=== PATIENT | female | born 1985 | race Caucasian/White ===

== ENCOUNTER → 2017-04-07 | Outpatient (CLI) | payer OTHER ==
[2017-04-07 18:18] LABS: BASO % 0.2 % (0.0-1.0); EOS # 0.1 K/mm3 (0.0-0.50); EOS % 1.2 % (0.0-3.0); LARGE UNSTAINED CELL # 0.1 K/mm3 (0.0-0.4); LARGE UNSTAINED CELL % 1.3 % (0.0-4.0); LYMPH # 2.5 K/mm3 (1.5-4.5); LYMPH % 31.1 % (24.0-44.0); MEAN CORPUSCULAR HEMOGLOBIN 31.2 pg (27.0-33.0); MEAN CORPUSCULAR HGB CONC 32.8 g/dl (32.0-36.5); MEAN CORPUSCULAR VOLUME 95.2 fl (80.0-96.0); MONO # 0.4 K/mm3 (0.0-0.8); MONO % 5.2 % (0.0-5.0); NEUTROPHILS # 4.9 K/mm3 (1.8-7.7); PLATELET COUNT, AUTOMATED 255 k/mm3 (150-450); RED CELL DISTRIBUTION WIDTH 12.1 % (11.5-14.5)
[2017-04-08 10:40] LABS: HBsAg Prenatal NEGATIVE (NEGATIVE)
== END ==
LOC: M SMT 13:20
PROVIDERS: ATTEND Advanced Practice Midwife
DX: Z34.81 Encounter for supervision of other normal pregnancy, first trimester (principal)

== ENCOUNTER → 2017-07-03 | Outpatient (CLI) | payer OTHER ==
--- NOTE | 2017-07-03 09:31 | REP ---
Obstetric ultrasound for anatomy: There is a single intrauterine gestation. position is variable. heart rate is 136 beats per minute. The placenta is anterior. There is no placenta previa or abruptio. Placenta demonstrates grade zero maturity. The amniotic fluid volume subjectively is normal. The cervix is 5.2 cm in length. The maternal adnexa and cul-de-sac are unremarkable. By the ultrasound today gestational age is 20 weeks 3 days with an AZUL of 11/17/2017. The LMP is unknown. weight is 392 grams (0 pounds, 13 ounces). This is the 64th percentile for 20 weeks 3 days. The following anatomic structures are identified and are unremarkable: Cerebellum, cisterna magna, cavum septum pellucidum, cranium, facial profile, lungs, four-chamber heart, diaphragm, stomach, cord insertion, three-vessel cord, kidneys, bladder, spine, and upper lower extremities. Suboptimally demonstrated because of lie and maternal body habitus are the intracranial lateral ventricles, choroid plexus and right and left cardiac ventricular outflow tracts. A followup study dedicated to these structures might be considered. Otherwise, there are no anomalies. Signed by Sandro Ramirez MD 07/03/2017 09:22 A
== END ==
LOC: M SMT 07:54
PROVIDERS: ATTEND Advanced Practice Midwife
DX: Z34.82 Encounter for supervision of other normal pregnancy, second trimester (principal); Z3A.20 20 weeks gestation of pregnancy

== ENCOUNTER 2017-07-07 17:16 | Emergency (ER) | payer OTHER ==
[~2017-07-07] VITALS: Ht 157.5 cm; Wt 97.5 kg
[2017-07-07 18:31] VITALS: BP 121/74
== END 2017-07-07 18:41 | disposition home or self-care (01) ==
LOC: M ED 17:16
DX: Z04.1 Encounter for examination and observation following transport accident (principal); V43.52XA Car driver injured in collision with other type car in traffic accident, initial encounter; Y92.410 Unspecified street and highway as the place of occurrence of the external cause; Z3A.21 21 weeks gestation of pregnancy

== ENCOUNTER → 2017-07-22 | Outpatient (CLI) | payer OTHER ==
[~2017-07-22] MED LIST: PRENTAB9 PO
--- NOTE | 2017-07-22 23:39 | REP ---
Clinical: Anatomical re-evaluation. Comparison: 10/09 . Findings: Examination demonstrates a single live intrauterine in variable presentation. motion is identified by technologist. Placenta is noted anteriorly and grade zero without evidence for placenta previa or abruption. Amniotic fluid volume is normal. Cervix measures 5.3 cm in length and appears closed. Nuchal cord cannot be excluded. Gestational age by first US 23 weeks 1 day with AZUL 11/17/2017 . Gestational age by current measurements 22 weeks 6 days with AZUL 11/19/2017. FHR equals 133 beats per minute. Estimated weight 607 grams ( 56th percentile). Anatomical assessment demonstrates normal structures including cranium, choroid plexus, cavum, cerebellum/posterior fossa, facial features, lungs, four-chamber heart/ left ventricular outflow tracts, diaphragm, stomach, cord insertion/three-vessel cord, kidneys/bladder, spine, and extremities. Impression: 1. Single live intrauterine in variable presentation demonstrating appropriate interval growth compared to first ultrasound. 2. Incomplete evaluation of the right cardiac ventricular outflow tract noted. Remainder of the anatomical assessment is complete and normal. 3. Nuchal cord cannot be excluded. Signed by Frederick Schulz MD 07/22/2017 11:30 P
== END ==
LOC: M SMT 11:24
PROVIDERS: ATTEND Obstetrics & Gynecology
DX: Z34.82 Encounter for supervision of other normal pregnancy, second trimester (principal); Z3A.23 23 weeks gestation of pregnancy

== ENCOUNTER → 2017-08-28 | Outpatient (CLI) | payer BC ==
--- NOTE | 2017-08-28 18:32 | REP ---
REASON: Followup anatomy. Multiple ultrasonographic images of the gravid uterus show a single living intrauterine gestation in the cephalic presentation. Doppler interrogation of the heart shows a heart rate of 141 beats per minute. The placenta is anterior and not low lying. The subjective aminotic fluid volume is within normal limits. The cervix measures 7 cm in length and it is closed. Evaluation of the maternal adnexal spaces showed no abnormalities. BPD 7.2 cm = 29 weeks 0 days HC 26.8 cm = 29 weeks 2 days AC 25.5 cm = 29 weeks 5 days FL 5.9 cm = 30 weeks 4 days Estimated weight is 1471 grams which is at the 76th percentile for a 28 week 3 day gestational age. The calculated amniotic fluid index is 13.5 with an expected range of 9.3 -22.2. The right ventricular outflow tract was well seen today and has a normal appearance. The remainder of the anatomical screen was seen on previous exams. Doppler interrogation of the umbilical artery shows an AB ratio of 2.47. This is slightly outside the lower limit of normal which is 2.55 for this age. IMPRESSION: Single living intrauterine gestation as described above with an estimated gestational age of 29 weeks 5 days via composite criteria with an estimated date of delivery of 11/08/2017 by today's exam. No anomalies were detected as described above. Signed by Arnaldo Moreno DO 08/28/2017 07:18 P
== END ==
LOC: M RAD 16:49
PROVIDERS: ATTEND Specialist
DX: Z34.82 Encounter for supervision of other normal pregnancy, second trimester (principal); Z3A.26 26 weeks gestation of pregnancy

== ENCOUNTER → 2017-08-30 | Outpatient (REF) | payer BC ==
[2017-08-30 19:54] LABS: MEAN CORPUSCULAR HEMOGLOBIN 31.5 pg (27.0-33.0); MEAN CORPUSCULAR VOLUME 98.2 fl (80.0-96.0); WHITE BLOOD COUNT 10.5 10^3/uL (4.0-10.0)
== END ==
LOC: M LABWUC 19:20
PROVIDERS: ATTEND Obstetrics & Gynecology
DX: Z34.82 Encounter for supervision of other normal pregnancy, second trimester (principal)

== ENCOUNTER 2017-10-01 15:00 | Outpatient (CLI) | payer BC ==
[~2017-10-01] VITALS: Ht 160 cm; Wt 107.9 kg
[2017-10-01 15:30] VITALS: BP 100/51
[2017-10-01] MEDS ORDERED: PRENTAB9 PO (15:32)
--- NOTE | 2017-10-01 17:11 | IPNPDOC ---
Text Note Date of Service The patient was seen on 10/01/17. NOTE Outpatient 31yo AZUL 11/19/17. Presents @ 33+ wks gestation reportedly falling this am onto knee and hip. Denies UC or bleeding. Fetus active NAD, VSS HRR, respirations easy Abdomen soft, gravid No UC on monitor FH 135, moderate variability and accels. However, strip is broken due to activity and maternal habitus Will observe, check labs and BPP. Dianne Weston CNM Oct 01, 2017 17:11
[2017-10-01 17:50] VITALS: BP 86/51
[2017-10-01 17:52] LABS: MEAN CORPUSCULAR HEMOGLOBIN 31.5 pg (27.0-33.0); MEAN CORPUSCULAR HGB CONC 33.8 g/dl (32.0-36.5); MEAN CORPUSCULAR VOLUME 93.1 fl (80.0-96.0); PLATELET COUNT, AUTOMATED 173 10^3/uL (150-450); RED CELL DISTRIBUTION WIDTH 12.2 % (11.5-14.5); WHITE BLOOD COUNT 10.1 10^3/uL (4.0-10.0)
--- NOTE | 2017-10-01 18:16 | REP ---
BIOPHYSICAL PROFILE OB ULTRASOUND: 10/01/2017. Clinical history: Trauma, patient fell. Comparison: 08/28/2017. Findings: Based on her initial ultrasound she is 33 weeks 2 days. There is a single intrauterine gestation in vertex position. Cervix is 4.9 cm long and closed. There is an anterior grade 2 placenta without previa or abruption. Visually the amniotic fluid volume is normal with an index of 15.2 and the normal range 8.2 - 24.6. Largest fluid pocket is 5.1 cm. Mid cord umbilical artery Doppler shows S/D ratio 2.71 with normal forward diastolic flow. heart rate 131 and regular. No evidence of a nuchal cord. Biophysical profile: Breathing 2 Tone 2 Movement 2 AFV 2. Impression: 1. Single intrauterine gestation in vertex presentation with closed 4.9 cm long cervix. Anterior grade 2 placenta without previa or abruption. No evidence of a nuchal cord. 2. Normal ELLEN 15.2 with normal cord Doppler SD ratio and biophysical profile score 8/8. 3 . heart rate 131 and regular. Signed by Sumeet Baker MD 10/01/2017 07:46 P
[2017-10-01 19:26] VITALS: BP 97/52
--- NOTE | 2017-10-01 19:27 | IPNPDOC ---
Text Note Date of Service The patient was seen on 10/01/17. NOTE heart tracing has remained Cat I over 4 hours No UC BPP 8/8 KB 0.00 No bleeding or cramping Discharge home. Routine precautions. Keep next appt VS,Johnson, I+O VS, Johnson, I+O Laboratory Tests 10/01/17 17:19 Red Blood Count 3.94 L, Mean Corpuscular Volume 93.1, Mean Corpuscular Hemoglobin 31.5, Mean Corpuscular Hemoglobin Concent 33.8, Red Cell Distribution Width 12.2 Vital Signs Date Time Temp Pulse Resp B/P (MAP) Pulse Ox O2 Delivery O2 Flow Rate FiO2 10/01/17 17:50 62 86/51 (63) 10/01/17 15:30 98.7 18 Dianne Weston CNM Oct 01, 2017 19:27
== END 2017-10-01 19:30 | disposition home or self-care (01) ==
LOC: M LDO 15:00
PROVIDERS: ATTEND Advanced Practice Midwife
DX: O99.89 Other specified diseases and conditions complicating pregnancy, childbirth and the puerperium (principal); Z3A.33 33 weeks gestation of pregnancy; W19.XXXA Unspecified fall, initial encounter; X58.XXXA Exposure to other specified factors, initial encounter; Y93.9 Activity, unspecified; Y92.9 Unspecified place or not applicable; Y99.8 Other external cause status; Z88.5 Allergy status to narcotic agent

== ENCOUNTER → 2017-10-12 | Outpatient (CLI) | payer BC ==
[2017-10-12 17:50] LABS: ALT/SGPT 41 U/L (12-78); AST/SGOT 29 U/L (7-37); BILIRUBIN,TOTAL 0.3 MG/DL (0.2-1.0); CREATININE FOR GFR 0.51 MG/DL (0.55-1.02); GLOMERULAR FILTRATION RATE > 60.0 (>60); URIC ACID 3.8 MG/DL (2.6-6.0)
== END ==
LOC: M LAB 16:34
PROVIDERS: ATTEND Advanced Practice Midwife
DX: O13.3 Gestational [pregnancy-induced] hypertension without significant proteinuria, third trimester (principal); Z3A.00 Weeks of gestation of pregnancy not specified

== ENCOUNTER → 2017-10-20 | Outpatient (REF) | payer BC | LOC: M LAB REF 17:26 | PROVIDERS: ATTEND Specialist | DX: Z34.83 Encounter for supervision of other normal pregnancy, third trimester (principal) ==

== ENCOUNTER 2017-11-10 12:35 | Inpatient (IN) | payer BC ==
[2017-11-10] VITALS (12 sets, daily range): BP systolic 111–134; BP diastolic 62–91
[~2017-11-10] VITALS: Ht 157.5 cm; Wt 114.3 kg
[2017-11-10] MEDS ORDERED: TUMS500C PO (12:57)
[2017-11-10 13:40] LABS: BASO % 0.3 % (0.0-1.0); EOS # 0.1 10^3/uL (0.0-0.50); EOS % 1.3 % (0.0-3.0); IMMATURE GRANULOCYTE % 0.4 % (0-0); LYMPH # 1.7 10^3/uL (1.5-4.5); LYMPH % 16.4 % (24.0-44.0); MEAN CORPUSCULAR HEMOGLOBIN 31.2 pg (27.0-33.0); MEAN CORPUSCULAR HGB CONC 34.5 g/dl (32.0-36.5); MEAN CORPUSCULAR VOLUME 90.4 fl (80.0-96.0); MONO # 0.7 10^3/uL (0.0-0.8); MONO % 7.1 % (0.0-5.0); NEUTROPHILS # 7.8 10^3/uL (1.8-7.7); NEUTROPHILS % 74.5 % (36.0-66.0); PLATELET COUNT, AUTOMATED 175 10^3/uL (150-450); RED CELL DISTRIBUTION WIDTH 12.5 % (11.5-14.5); WHITE BLOOD COUNT 10.5 10^3/uL (4.0-10.0)
[2017-11-10] MEDS ORDERED: miSOPROStol 50 MCG 1/2 TAB (S0191) PO SCH (14:15)
[2017-11-10 14:16] LABS: ALT/SGPT 19 U/L (12-78); AST/SGOT 20 U/L (7-37); BILIRUBIN,TOTAL 0.2 MG/DL (0.2-1.0); GLOMERULAR FILTRATION RATE > 60.0 (>60); URIC ACID 4.3 MG/DL (2.6-6.0)
--- NOTE | 2017-11-10 14:42 | HPEPDOC ---
Obstetrical History & Physical General Date of Admission Nov 10, 2017 at 12:35 History of Present Illness CC: Gestational Hypertension HPI: Patient is a 31 y.o. G 1 P0 0 0 0 @ 38 and 5/7 weeks gestation by US of 8 and 5/ 7 weeks. AZUL 11/19/17. 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 Blood pressure was found to be 144/78. Has +1 edema of feet bilaterally. Has been having Carbon Carter contractions. Repeat blood pressure is 138/82. Has been complaining of a frontal headache for one week. Denied blurred vision, abdominal pain. Meeting criteria for gestational hypertension and agreed to send to L&D. No bloody show. Care/Lab: Blood type: O+ Total weight gained: 75 BPs: 144/78 11/10/17 GBS: negative HIV: negative Rubella: Immune GC/CT: Negative /negative Hep BsAg: negative VDRL/RPR: Nonreactive Diabetes Screen: negative, 115 OB U/S: Anatomy ultrasound 07/03/17, SIUP, 20 w, 3d. Placenta is anterior with no previa or abruption. AFV is wnl. Cervix is 5.2 cm and closed. FHR is 146 bpm. EFQ is 392 g. No gross abnormalities. Suboptimally seen intracranial lateral ventricles, choroid plexus and LVOT. POB Hx: No past obstetrical history PMHx: Extrinsic asthma without status asthmaticus Meds: Prenatals vitamins PSHx: Dental Allergies: Codeine Social Hx: Has been with current partner for 8 years, nonsmoker, denies alcohol use, denies drug use. Past Medical History Allergies Coded Allergies: Codeine (Verified Allergy, Unknown, 11/10/17) pt reports swelling Medications Scheduled Multivitamins/ ( 27-0.8 mg) 1 Tab Tab, 1 TAB PO DAILY Scheduled PRN Calcium Carbonate (Tums) 500 Mg Chw, 500 MG PO DAILYPRN PRN for INDIGESTION Physical Examination Physical Examination Exam: General: Alert, cooperative. Comfortable. No active contractions. Cardiac: RRR, no murmurs or gallops. Respiratory: Clear to auscultation. Abdomen: Gravid, nontender. SVE: fingertip/ 50 %/ -3 station from office note 11/10/17. Monitor: moderate variability noted. Laboratory Data 24H LABS Laboratory Tests 2 11/10/17 12:53: Serology Scanned Report Hepatitis B Testing 11/10/17 13:25: Immature Granulocyte % (Auto) 0.4H, White Blood Count 10.5H, Red Blood Count 4.07, Hemoglobin 12.7, Hematocrit 36.8, Mean Corpuscular Volume 90.4, Mean Corpuscular Hemoglobin 31.2, Mean Corpuscular Hemoglobin Concent 34.5, Red Cell Distribution Width 12.5, Platelet Count 175, Neutrophils (%) (Auto) 74.5H, Lymphocytes (%) (Auto) 16.4L, Monocytes (%) (Auto) 7.1H, Eosinophils (%) (Auto) 1.3, Basophils (%) (Auto) 0.3, Neutrophils # (Auto) 7.8H, Lymphocytes # (Auto) 1.7, Monocytes # (Auto) 0.7, Eosinophils # (Auto) 0.1, Basophils # (Auto) 0.0, Immature Granulocyte # (Auto) 0.0, Nucleated Red Blood Cells % (auto) 0.0, Urine Random Creatinine 45.2, Urine Random Total Protein < 5.0, Glomerular Filtration Rate > 60.0, Creatinine 0.50L, Aspartate Amino Transf (AST/SGOT) 20, Alanine Aminotransferase (ALT/SGPT) 19, Lactate Dehydrogenase 149, Total Bilirubin 0.2, Uric Acid 4.3, Urine Amphetamines Screen NEGATIVE, Urine Benzodiazepines Screen NEGATIVE, Urine Opiates Screen NEGATIVE, Urine Methadone Screen NEGATIVE, Urine Barbiturates Screen NEGATIVE, Urine Phencyclidine Screen NEGATIVE, Urine Cocaine Metabolite Screen NEGATIVE, Urine Cannabinoids Screen NEGATIVE CBC/BMP Laboratory Tests 11/10/17 13:25 Red Blood Count 4.07, Mean Corpuscular Volume 90.4, Mean Corpuscular Hemoglobin 31.2, Mean Corpuscular Hemoglobin Concent 34.5, Red Cell Distribution Width 12.5 , Neutrophils (%) (Auto) 74.5 H, Lymphocytes (%) (Auto) 16.4 L, Monocytes (%) ( Auto) 7.1 H, Eosinophils (%) (Auto) 1.3, Basophils (%) (Auto) 0.3, Neutrophils # (Auto) 7.8 H, Lymphocytes # (Auto) 1.7, Monocytes # (Auto) 0.7, Eosinophils # (Auto) 0.1, Basophils # (Auto) 0.0, Aspartate Amino Transf (AST/SGOT) 20, Alanine Aminotransferase (ALT/SGPT) 19, Lactate Dehydrogenase 149, Total Bilirubin 0.2, Uric Acid 4.3 Assessment/Plan Plan A/P 1.IUP @ 38 and 5/7 weeks for gestational hypertension and induction of labor. Monitor vitals. Start Cytotec 50 mcg q4h. Continuous monitoring. Pre- eclampsia labs ordered, pending. 2.GBS negative. No antibiotics indicated at this time. Monitor vitals. 3.Anticipate spontaneous vaginal delivery. Anesthesia consult place for epidural. Labs ordered per protocol. Regular diet. Type and screen ordered. GME ATTESTATION GME ATTESTATION My faculty preceptor for this patient encounter was physically present during the encounter and was fully available. All aspects of the patient interview, examination, medical decision making process, and medical care plan development were reviewed and approved by the faculty preceptor. The faculty preceptor is aware and concurs with the plan as stated in the body of this note and will attest to such by his/her cosignature. LANCE ADAMS DO Nov 10, 2017 14:42
[2017-11-10] MEDS: miSOPROStol 50 MCG 1/2 TAB (S0191) SL SCH ×2 (18:25→22:42)
[2017-11-11] VITALS (50 sets, daily range): BP systolic 104–175; BP diastolic 55–86
--- NOTE | 2017-11-11 02:56 | IPNPDOC ---
Text Note Date of Service The patient was seen on 11/11/17. NOTE Vital Signs Date Time Temp Pulse Resp B/P (MAP) Pulse Ox O2 Delivery O2 Flow Rate FiO2 11/10/17 23:45 98.0 73 18 113/65 (81) 11/10/17 22:49 77 120/69 (86) 11/10/17 20:32 78 120/74 (89) 11/10/17 18:23 98.2 78 18 134/69 (90) 11/10/17 17:37 77 125/68 (87) 11/10/17 16:40 70 115/64 (81) 11/10/17 16:19 78 124/69 (87) 11/10/17 15:22 70 111/62 (78) 11/10/17 14:21 97.9 69 18 133/91 (105) 11/10/17 14:16 73 121/77 (92) 11/10/17 13:15 75 132/71 (91) 11/10/17 13:00 98.1 73 18 132/79 (96) Intake & Output 11/11/17 06:00 Intake Total 600 ml Balance 600 ml Laboratory Tests 11/10/17 12:53: Serology Scanned Report Hepatitis B Testing 11/10/17 13:25: White Blood Count 10.5H, Red Blood Count 4.07, Hemoglobin 12.7, Hematocrit 36.8 , Mean Corpuscular Volume 90.4, Mean Corpuscular Hemoglobin 31.2, Mean Corpuscular Hemoglobin Concent 34.5, Red Cell Distribution Width 12.5, Platelet Count 175, Neutrophils (%) (Auto) 74.5H, Lymphocytes (%) (Auto) 16.4L, Monocytes (%) (Auto) 7.1H, Eosinophils (%) (Auto) 1.3, Basophils (%) (Auto) 0.3 , Neutrophils # (Auto) 7.8H, Lymphocytes # (Auto) 1.7, Monocytes # (Auto) 0.7, Eosinophils # (Auto) 0.1, Basophils # (Auto) 0.0, Immature Granulocyte % (Auto) 0.4H, Immature Granulocyte # (Auto) 0.0, Nucleated Red Blood Cells % (auto) 0.0 , Urine Random Creatinine 45.2, Urine Random Total Protein < 5.0, Creatinine 0.50L, Aspartate Amino Transf (AST/SGOT) 20, Alanine Aminotransferase (ALT/SGPT ) 19, Lactate Dehydrogenase 149, Total Bilirubin 0.2, Uric Acid 4.3, Glomerular Filtration Rate > 60.0, Urine Amphetamines Screen NEGATIVE, Urine Benzodiazepines Screen NEGATIVE, Urine Opiates Screen NEGATIVE, Urine Methadone Screen NEGATIVE, Urine Barbiturates Screen NEGATIVE, Urine Phencyclidine Screen NEGATIVE, Urine Cocaine Metabolite Screen NEGATIVE, Urine Cannabinoids Screen NEGATIVE, Syphilis Serology [Pending] Current Medications Medications (Trade) Dose Ordered Sig/Maulik Route PRN Reason Start Time Stop Time Status Last Admin Dose Admin Misoprostol (Cytotec) 50 mcg Q4H SL 11/10/17 18:15 12/10/17 18:14 11/10/17 22:42 50 MCG Becoming uncomfortable. Reports lower abdominal discomfort FH 130, moderate variability UC 2-3 minutes apart x 45 seconds SVE /high Repeat misoprostol Stadol/phenergan for sedation VS,Fishbone, I+O VS, Fishbone, I+O Laboratory Tests 11/10/17 13:25 Red Blood Count 4.07, Mean Corpuscular Volume 90.4, Mean Corpuscular Hemoglobin 31.2, Mean Corpuscular Hemoglobin Concent 34.5, Red Cell Distribution Width 12.5 , Neutrophils (%) (Auto) 74.5 H, Lymphocytes (%) (Auto) 16.4 L, Monocytes (%) ( Auto) 7.1 H, Eosinophils (%) (Auto) 1.3, Basophils (%) (Auto) 0.3, Neutrophils # (Auto) 7.8 H, Lymphocytes # (Auto) 1.7, Monocytes # (Auto) 0.7, Eosinophils # (Auto) 0.1, Basophils # (Auto) 0.0, Aspartate Amino Transf (AST/SGOT) 20, Alanine Aminotransferase (ALT/SGPT) 19, Lactate Dehydrogenase 149, Total Bilirubin 0.2, Uric Acid 4.3 Vital Signs Date Time Temp Pulse Resp B/P (MAP) Pulse Ox O2 Delivery O2 Flow Rate FiO2 11/10/17 23:45 98.0 73 18 113/65 (81) I&O- Last 24 Hours up to 6 AM 11/11/17 06:00 Intake Total 600 ml Balance 600 ml Dianne Weston CNM Nov 11, 2017 02:56
[2017-11-11] MEDS ORDERED: BUTORPHANOL 2 MG/ML INJ (J0595) IV ONE (03:00)
[2017-11-11] MEDS ORDERED: PROMETHAZINE INJ 25 MG/ML VIAL (J2550) IV ONE (03:00)
[2017-11-11] MEDS ORDERED: LACTATED RINGER'S 1000 ML IV ONE (03:00)
[2017-11-11] MEDS: miSOPROStol 50 MCG 1/2 TAB (S0191) SL SCH (03:15)
[2017-11-11] MEDS: LR 1,000 ML IV SCH ×4 (03:18→19:12)
[2017-11-11] MEDS ORDERED: LR 1,000 ML IV SCH (08:18)
[2017-11-11] MEDS ORDERED: OXYTOCIN DRIP 30 UNITS in APPROPRIATE DILUENT 1 EA IV SCH (08:30)
[2017-11-11] MEDS ORDERED: FENTANYL 2MCG/ML ROPIVACAINE 0.2% IN 0.9% NACL 200ML IVBAG As Ordered ONE (19:22)
[2017-11-11] MEDS ORDERED: EPIDURAL COMMENT XX SCH (20:30)
[2017-11-11] MEDS ORDERED: EPIDURAL/PCA KEYS XX PRN (20:30)
[2017-11-11] MEDS ORDERED: NALOXONE INJ 0.4 MG/1 ML VIAL (J2310) IV PRN (20:30)
[2017-11-11] MEDS ORDERED: diphenhydrAMINE INJ 50MG/ML VIAL (J1200) IV PRN (20:30)
[2017-11-11] MEDS ORDERED: REFRIGERATOR IV KEYS XX PRN (20:30)
[2017-11-11] MEDS ORDERED: FENTANYL/ROPIVACAINE/NACL BAG 200 ML EPIDURAL SCH (20:30)
[2017-11-11] MEDS ORDERED: ONDANSETRON 4MG/2ML VIAL (J2405) IV PRN (20:30)
[2017-11-11] MEDS ORDERED: LACTATED RINGER'S 1000 ML IV PRN (20:30)
[2017-11-11] MEDS ORDERED: ePHEDrine SULFATE 25 MG/5 ML(5MG/ML) SYRINGE IV PRN (20:30)
[2017-11-11] MEDS ORDERED: BICITRA 30ML SOLN UDC PO ONE (23:30)
[2017-11-12] VITALS (8 sets, daily range): BP systolic 105–135; BP diastolic 52–77
[2017-11-12] MEDS ORDERED: LIDOCAINE 2% W/EPIN INJ 20ML **PRES FREE As Ordered ONE (00:06)
[2017-11-12] MEDS ORDERED: OXYTOCIN INJ 10 UNITS/ML VIAL (J2590) As Ordered ONE (00:06)
[2017-11-12] MEDS ORDERED: SODIUM BICARBONATE 8.4% INJ 50 ML SYRINGE As Ordered ONE (00:06)
[2017-11-12] MEDS ORDERED: EPINEPHrine 1MG/10ML SYRINGE 1.5IN As Ordered ONE (00:06)
[2017-11-12] MEDS ORDERED: MORPHINE PRES-FREE INJ 10 MG/10 ML VIAL (J2274) As Ordered ONE (00:22)
[2017-11-12] MEDS ORDERED: ONDANSETRON 4MG/2ML VIAL (J2405) As Ordered ONE (00:26)
[2017-11-12] MEDS ORDERED: METOCLOPRAMIDE INJ 10MG/2ML VIAL (J2765) As Ordered ONE (00:44)
[2017-11-12 00:53] LABS: CORD GAS ABE V -8.3; CORD GAS HCO3 V 19.9 MEQ/L; CORD GAS O2 SAT V 20.4 %; CORD GAS PCO2 V 51.6 mmHg; CORD GAS PH V 7.204 UNITS; CORD GAS PO2 V 14.3 mmHg; CORD GAS SBC V 16.2 MEQ/L; CORD GAS TCO2 V 21.5 MEQ/L
[2017-11-12 00:55] LABS: CORD GAS ABE A -11.1; CORD GAS HCO3 A 18.4 MEQ/L; CORD GAS O2 SAT A 36.5 %; CORD GAS PCO2 A 55.2 mmHg; CORD GAS PH A 7.14 UNITS; CORD GAS PO2 A 20.7 mmHg; CORD GAS SBC A 14.6 MEQ/L; CORD GAS TCO2 A 20.1 MEQ/L
[2017-11-12] MEDS ORDERED: ONDANSETRON 4MG/2ML VIAL (J2405) IV PRN ×2 (01:15→01:30)
[2017-11-12] MEDS ORDERED: OXYTOCIN DRIP 30 UNITS in APPROPRIATE DILUENT 1 EA IV ONE (01:15)
[2017-11-12] MEDS ORDERED: MEASLES,MUMPS,RUBELLA VACCINE INJ (MMR-II) (90707) SC SCH (01:15)
[2017-11-12] MEDS ORDERED: MOM 30ML SUSPENSION UDC PO PRN (01:15)
[2017-11-12] MEDS ORDERED: CARBOPROST TROMETHAMINE 250 MCG/ML AMP IM ONE (01:15)
[2017-11-12] MEDS ORDERED: RHOGAM 300 MCG (1500 IU) INJ (J2790) IM SCH (01:15)
[2017-11-12] MEDS ORDERED: LR 1,000 ML IV SCH (01:30)
[2017-11-12] MEDS ORDERED: fentaNYL 100 MCG/2 ML INJECTION (J3010) IV PRN (01:30)
[2017-11-12] MEDS ORDERED: NALBUPHINE HCL 10 MG/ML AMP (J2300) IV PRN (01:30)
[2017-11-12] MEDS ORDERED: MORPHINE 10 MG/ML 1ML VIAL IV PRN (01:30)
[2017-11-12] MEDS ORDERED: diphenhydrAMINE INJ 50MG/ML VIAL (J1200) IV PRN (01:30)
[2017-11-12] MEDS: KETOROLAC 30 MG/ML VIAL (J1885) IV SCH ×4 (01:45→20:24)
[2017-11-12] MEDS: PERCOCET 5MG/325MG TAB PO PRN ×3 (02:30→17:21)
[2017-11-12] MEDS: LR 1,000 ML IV SCH ×3 (06:45→17:11)
[2017-11-12] MEDS: FERROUS SULFATE 325MG TAB PO SCH (09:00)
[2017-11-12] MEDS: DOCUSATE SODIUM 100 MG CAP PO SCH ×2 (09:00→20:23)
[2017-11-12] MEDS: PRENATAL VITAMINS CHEWABLE TABLET PO SCH (09:00)
--- NOTE | 2017-11-12 10:50 | RO ---
DATE OF PROCEDURE: 11/12/2017 PREOPERATIVE DIAGNOSES: 1. Inability to augment labor, remote from delivery. 2. Category 2 heart rate tracing. 3. Gestational hypertension. POSTOPERATIVE DIAGNOSES: 1. Inability to augment labor, remote from delivery. 2. Category 2 heart rate tracing. 3. Gestational hypertension. PROCEDURE PERFORMED: Primary low transverse section. SURGEON: Marie Edwards MD JUNIOR AUTOMATION ENGINEER: Donna Luna CNM ANESTHESIA: Epidural. ESTIMATED BLOOD LOSS: 500 mL. INTRAVENOUS FLUIDS: 1300 mL lactated Ringer' solution. URINE OUTPUT: 50 mL. PREOPERATIVE ANTIBIOTICS: 2 grams of Ancef. OPERATIVE FINDINGS: Liveborn male , scores 8 and 9, weight was 3410 grams, 7 pounds 8 ounces. SPECIMENS: Cord blood and cord gases. Cord gases 7.14, 7.20, base excess of -11.1, -8.3. DESCRIPTION OF PROCEDURE: Description of operation: After informed consent was obtained and written consent was reviewed, the patient was brought to the operating room where she was prepped and draped in a normal sterile fashion. A Umana catheter was previously placed and set to gravity. Time-out in operating room was then performed identifying the patient, procedure to be performed, as well as drug allergies. Anesthesia was tested and deemed to be adequate. A Pfannenstiel skin incision was then made and carried down to the underlying rectus fascia. The fascia was scored and this incision was extended bilaterally. The fascia was then dissected off the underlying rectus muscles both superiorly and inferiorly. The rectus muscles were in the midline. The peritoneum was then entered. The vesicouterine peritoneum was then identified, was tented and excised to creatinine a bladder flap. The bladder blade was then placed to retract back the bladder. Curvilinear incision was then made in the lower uterine segment. The head was then delivered through incision atraumatically followed by shoulders and corpus. Cord was clamped times two and was cut. was taken over the warmer with a good cry. Cord gasses and blood were obtained. Placenta was then delivered, grossly intact. The uterus was then exteriorized and cleared of all clots and debris. The uterine incision was then closed in two layers using #0 Vicryl, first layer in a running locking fashion followed by a second layer for imbrication in a running nonlocking fashion. The abdomen was then suctioned. Uterus was returned to the patient's abdomen. Uterine incisions reinspected and noted to be hemostatic. The anterior peritoneum was then reapproximated with #3-0 Vicryl. Rectus muscles were reapproximated with #3-0 Vicryl. The fascia was then closed with #0 Vicryl in a running nonlocking fashion. Subcutaneous tissue was then irrigated and suctioned. Subcutaneous tissue was reapproximated with #3-0 Vicryl. Several subdermal stitches were placed with #3-0 Vicryl, and the skin was closed with #4-0 Monocryl in a subcuticular fashion. The incision was then cleaned and dry. Mastisol was applied above and below the incision. Steri-Strips were applied over the incision. The incision was then dressed. The patient was then taken to recovery in stable condition. Counts were correct.
[2017-11-13] MEDS: PERCOCET 5MG/325MG TAB PO PRN ×4 (00:01→21:15)
[2017-11-13] MEDS: LR 1,000 ML IV SCH (01:11)
[2017-11-13] MEDS: IBUPROFEN 800 MG TAB PO SCH ×3 (04:00→19:44)
[2017-11-13 06:00] VITALS: BP 127/77
[2017-11-13 09:00] LABS: MEAN CORPUSCULAR HGB CONC 32.9 g/dl (32.0-36.5); MEAN CORPUSCULAR VOLUME 94.3 fl (80.0-96.0); PLATELET COUNT, AUTOMATED 190 10^3/uL (150-450); RED CELL DISTRIBUTION WIDTH 12.6 % (11.5-14.5); WHITE BLOOD COUNT 13.2 10^3/uL (4.0-10.0)
[2017-11-13] MEDS: DOCUSATE SODIUM 100 MG CAP PO SCH ×2 (09:11→19:44)
[2017-11-13] MEDS: FERROUS SULFATE 325MG TAB PO SCH (09:11)
[2017-11-13] MEDS: PRENATAL VITAMINS CHEWABLE TABLET PO SCH (09:11)
[2017-11-13] MEDS ORDERED: IBUP1TAB7 PO (09:29)
[2017-11-13] MEDS ORDERED: PERCOCET PO (09:30)
[2017-11-13 10:00] VITALS: BP 135/74
[2017-11-13 14:00] VITALS: BP 146/85
[2017-11-13 18:06] VITALS: BP 133/75
[2017-11-13 22:36] VITALS: BP 120/59
[2017-11-14] MEDS: IBUPROFEN 800 MG TAB PO SCH ×3 (04:18→20:01)
[2017-11-14] MEDS: PERCOCET 5MG/325MG TAB PO PRN ×4 (04:18→20:02)
[2017-11-14 06:00] VITALS: BP 140/78
[2017-11-14] MEDS: DOCUSATE SODIUM 100 MG CAP PO SCH ×2 (08:18→19:59)
[2017-11-14] MEDS: FERROUS SULFATE 325MG TAB PO SCH (08:18)
[2017-11-14] MEDS: PRENATAL VITAMINS CHEWABLE TABLET PO SCH (08:19)
[2017-11-14 18:00] VITALS: BP 155/75
[2017-11-15] MEDS: PERCOCET 5MG/325MG TAB PO PRN ×2 (03:20→08:23)
[2017-11-15] MEDS: IBUPROFEN 800 MG TAB PO SCH ×2 (03:20→12:34)
[2017-11-15 06:00] VITALS: BP 146/79
[2017-11-15] MEDS: PRENATAL VITAMINS CHEWABLE TABLET PO SCH (08:22)
[2017-11-15] MEDS: FERROUS SULFATE 325MG TAB PO SCH (08:22)
[2017-11-15] MEDS: DOCUSATE SODIUM 100 MG CAP PO SCH (08:22)
[2017-11-15] MEDS ORDERED: OXYC1TAB23 PO (14:27)
== END 2017-11-15 12:45 | disposition home or self-care (01) | DRG 540 ==
LOC: M LDI 12:35 → M OBS 11-12 02:49
PROVIDERS: ADMIT Advanced Practice Midwife; ATTEND Advanced Practice Midwife
PROC: 3E0DXGC Introduction of Other Therapeutic Substance into Mouth and Pharynx, External Approach (ICD-10-PCS; 2017-11-12)
PROC: 10D00Z1 Extraction of Products of Conception, Low, Open Approach (ICD-10-PCS; principal; 2017-11-12 00:16)
DX: O13.4 Gestational [pregnancy-induced] hypertension without significant proteinuria, complicating childbirth (principal); O61.0 Failed medical induction of labor; Z37.0 Single live birth; Z3A.38 38 weeks gestation of pregnancy

== ENCOUNTER → 2018-02-11 | Outpatient (REF) | payer BC | LOC: M LAB REF 17:20 | DX: R87.610 Atypical squamous cells of undetermined significance on cytologic smear of cervix (ASC-US) (principal) | CPT/HCPCS: 88305 ==

== ENCOUNTER → 2018-02-12 | Outpatient (REF) | payer OTHER | LOC: M LAB REF 13:47 | DX: D48.5 Neoplasm of uncertain behavior of skin (principal) ==

== ENCOUNTER → 2018-04-22 | Outpatient (REF) | payer BC | LOC: M LAB REF 15:31 | DX: D48.5 Neoplasm of uncertain behavior of skin (principal) | CPT/HCPCS: 88305 ==

== ENCOUNTER → 2018-09-20 | Outpatient (CLI) | payer BC | LOC: M SMT 15:49 | DX: M54.41 Lumbago with sciatica, right side (principal) | CPT/HCPCS: 72114 ==

== ENCOUNTER 2018-09-24 09:25 | Emergency (ER) | payer BC ==
[2018-09-24] MEDS: KETOROLAC 60 MG/2 ML VIAL (J1885) IM (10:41)
== END 2018-09-24 11:10 | disposition home or self-care (01) ==
LOC: M ED 09:25
DX: M51.26 Other intervertebral disc displacement, lumbar region (principal); M51.27 Other intervertebral disc displacement, lumbosacral region; M54.30 Sciatica, unspecified side; J45.909 Unspecified asthma, uncomplicated; Z87.59 Personal history of other complications of pregnancy, childbirth and the puerperium; Z79.899 Other long term (current) drug therapy; Z88.5 Allergy status to narcotic agent
CPT/HCPCS: J1885

== ENCOUNTER → 2019-02-08 | Outpatient (REF) | payer BC ==
[~2019-02-08] MED LIST changes: +IBUP1TAB7 PO; +NEUR100C PO; +OXYC1TAB23 PO; +PERCOCET PO; +PRED5PAK PO; +TUMS500C PO
[2019-02-10 14:12] LABS: HPV HYBRID CAPTURE II Negative (Negative)
== END ==
LOC: M LAB REF 17:59
PROVIDERS: ATTEND Obstetrics & Gynecology
DX: Z12.4 Encounter for screening for malignant neoplasm of cervix (principal)

== ENCOUNTER → 2019-11-30 | Outpatient (CLI) | payer BC | LOC: M PLALAB 15:46 | PROVIDERS: ATTEND Advanced Practice Midwife | DX: O36.80X0 Pregnancy with inconclusive fetal viability, not applicable or unspecified (principal) ==

== ENCOUNTER → 2019-12-06 | Outpatient (CLI) | payer BC ==
--- NOTE | 2019-12-07 04:49 | REP ---
Clinical: Dating and viability. Technique: Transabdominal first trimester obstetrical ultrasound with color Doppler evaluation. Findings: Ultrasound examination demonstrates a single live early intrauterine . CRL of 66 mm corresponds to 12 weeks 6 days gestational age with estimated date of delivery 06/13/2020. heart rate equals 136 beats per minute. No gross abnormalities are identified. Placenta is noted anteriorly and grade zero. Cervix measures 3.7 cm in length and appears closed. Maternal ovaries are normal. Impression: 1. Single live intrauterine at 12 weeks 6 days gestational age. 2. Complete anatomical assessment should be performed at 19-20 weeks.
== END ==
LOC: M WHC 14:12
PROVIDERS: ATTEND Advanced Practice Midwife
DX: O36.80X0 Pregnancy with inconclusive fetal viability, not applicable or unspecified (principal); Z3A.12 12 weeks gestation of pregnancy

== ENCOUNTER → 2020-01-18 | Outpatient (CLI) | payer BC ==
--- NOTE | 2020-01-18 19:40 | REP ---
Obstetric sonography: History: Supervision of for anatomy. Findings: Scanning through the gravid uterus demonstrates a viable single intrauterine gestation in a cephalic lie. motion is observed and heart rate is recorded at 133 beats per minute. An anterior grade 1 placenta is seen without evidence of previa or abruption. Amniotic fluid is subjectively normal. Closed cervical length measures 3.8 cm. No abnormality is observed. Facial profile is seen but nose and lips are less than optimally seen due to position. Similarly, the spine could only be visualized sagittally. The following additional anatomic structures are identified today and felt to be unremarkable: cranium, choroid plexus, cavum, cerebellum and posterior fossa, nuchal fold, four-chamber heart with left and right ventricular outflow tract views, diaphragm, left-sided stomach, abdominal wall cord insertion, three-vessel umbilical cord, kidneys and bladder, upper and lower extremities. Biometry chart: BPD 4.2 cm = 18 weeks 5 days HC 15.9 cm = 18 weeks 5 days AC 14.1 cm = 19 weeks 3 days FL 3.0 cm = 19 weeks 2 days HC/AC ratio normal 1.13. Cephalic index normal 0.72. Estimated weight 284 grams, 0 pounds 10 ounces, 56th percentile for 19 weeks 0 days. Impression: Viable single intrauterine gestation at 18 weeks 6 days by today's composite criteria. Expected gestational age estimate based on prior sonography is 19 weeks 0 days. AZUL by prior sonography June 13, 2020. Less than optimal visualization of the nose and lips and transverse images of the spine.
== END ==
LOC: M WHC 13:53
PROVIDERS: ATTEND Advanced Practice Midwife
DX: Z34.92 Encounter for supervision of normal pregnancy, unspecified, second trimester (principal); Z36.89 Encounter for other specified antenatal screening; Z3A.18 18 weeks gestation of pregnancy

== ENCOUNTER → 2020-01-21 | Outpatient (CLI) | payer BC ==
[2020-01-21 14:31] LABS: HEMATOCRIT 37.4 % (36.0-47.0); MEAN CORPUSCULAR HEMOGLOBIN 29.9 pg (27.0-33.0); MEAN CORPUSCULAR HGB CONC 32.1 g/dl (32.0-36.5); PLATELET COUNT, AUTOMATED 209 10^3/uL (150-450); RED BLOOD COUNT 4.02 10^6/uL (4.00-5.40); WHITE BLOOD COUNT 8.8 10^3/uL (4.0-10.0)
[2020-01-21 14:44] LABS: ALT/SGPT 12 U/L (12-78); BILIRUBIN,TOTAL 0.5 MG/DL (0.2-1.0); CREATININE FOR GFR 0.54 MG/DL (0.55-1.30); GLOMERULAR FILTRATION RATE > 60.0 (>60); GLUCOSE CHALLENGE TEST 1 HOUR 100 MG/DL (LESS THAN 140); LDH LACTATE DEHYDROGENASE 125 U/L (84-246); URIC ACID 3.3 MG/DL (2.6-6.0)
[2020-01-21 14:51] LABS: CREATININE,RANDOM URINE 31.2 MG/DL; TOTAL PROTEIN,RANDOM URINE < 5.0 MG/DL (0.0-12.0)
[2020-01-21 15:04] LABS: HEMOGLOBIN A1c 5.2 %
[2020-01-21 16:03] LABS: CHLAMYDIA DNA AMPLIFICATION NEGATIVE (NEGATIVE); GC DNA AMPLIFICATION NEGATIVE (NEGATIVE)
[2020-01-23 10:09] LABS: RUBELLA IgG QUALITATIVE IMMUNE (IMMUNE)
[2020-01-23 10:38] LABS: HEPATITIS C VIRUS ABY INDEX < 0.0 INDEX (<0.8)
[2020-01-23 10:39] LABS: HIV 1&2 SCREEN CENTAUR NEGATIVE (NEGATIVE)
== END ==
LOC: M WUC 09:00
PROVIDERS: ATTEND Advanced Practice Midwife
DX: Z34.92 Encounter for supervision of normal pregnancy, unspecified, second trimester (principal)

== ENCOUNTER → 2020-02-07 | Outpatient (CLI) | payer BC ==
--- NOTE | 2020-02-07 18:32 | REP ---
Clinical: Anatomical evaluation. Comparison: 01/18/2020 . Findings: Examination demonstrates a single live intrauterine in transverse (head to maternal left) presentation. motion is identified by technologist. Placenta is noted anterior and grade zero without evidence for placenta previa or abruption. Amniotic fluid volume is normal. Cervix measures 4.1 cm in length and appears closed. No evidence for nuchal cord. Gestational age by first US 21 weeks 6 days with AZUL 06/13/2020 . Gestational age by current measurements 20 weeks 6 days with AZUL 06/20/2020 . FHR equals 140 beats per minute. Estimated weight 403 grams ( 23rd percentile). Anatomical assessment demonstrates normal structures including facial features. Suboptimal evaluation of the spine again noted. Impression: 1. Single live intrauterine in transverse lie demonstrating appropriate interval growth. 2. Facial features are now identified and normal. Spine is again limited in evaluation due to positioning. Electronically Signed by Frederick Schulz MD 02/07/2020 06:23 P
== END ==
LOC: M WHC 14:24
PROVIDERS: ATTEND Advanced Practice Midwife
DX: Z34.82 Encounter for supervision of other normal pregnancy, second trimester (principal)

== ENCOUNTER → 2020-03-12 | Outpatient (CLI) | payer BC ==
--- NOTE | 2020-03-13 04:31 | REP ---
Clinical: Anatomical evaluation. Comparison: 02/07/2020 . Findings: Examination demonstrates a single live intrauterine in variable presentation. motion is identified by technologist. Placenta is noted anterior and grade I without evidence for placenta previa or abruption. Amniotic fluid volume is normal. Cervix measures 4.6 cm in length and appears closed. No evidence for nuchal cord. Gestational age by LMP 26 weeks 1 day with AZUL 06/17/2020 . Gestational age by current measurements 26 weeks 1 day with AZUL 06/17/2020 . FHR equals 152 beats per minute. Estimated weight 930 grams ( 51st percentile). Anatomical assessment demonstrates normal structures including cranium, facial features, diaphragm, stomach, cord insertion/three-vessel cord, kidneys/bladder, and spine. Impression: single live intrauterine in variable presentation demonstrating appropriate interval growth. In conjunction with prior examination anatomical assessment is complete and normal.
== END ==
LOC: M WHC 08:27
PROVIDERS: ATTEND Advanced Practice Midwife
DX: O34.219 Maternal care for unspecified type scar from previous cesarean delivery (principal)

== ENCOUNTER → 2020-03-12 | Outpatient (REF) | payer BC ==
[2020-03-12 12:22] LABS: HEMATOCRIT 37.4 % (36.0-47.0); HEMOGLOBIN 12.1 g/dl (12.0-15.5); MEAN CORPUSCULAR HEMOGLOBIN 30.3 pg (27.0-33.0); MEAN CORPUSCULAR HGB CONC 32.4 g/dl (32.0-36.5); MEAN CORPUSCULAR VOLUME 93.5 fl (80.0-96.0); PLATELET COUNT, AUTOMATED 197 10^3/uL (150-450); WHITE BLOOD COUNT 10.4 10^3/uL (4.0-10.0)
== END ==
LOC: M PLALAB 09:36
PROVIDERS: ATTEND Advanced Practice Midwife
DX: O34.219 Maternal care for unspecified type scar from previous cesarean delivery (principal); Z36.89 Encounter for other specified antenatal screening; Z3A.00 Weeks of gestation of pregnancy not specified

== ENCOUNTER → 2020-05-21 | Outpatient (REF) | payer BC ==
[~2020-05-21] MED LIST changes: +IBUP80TA PO; +PREN1TAB18 PO
== END ==
LOC: M SFHCWAGY 16:42
PROVIDERS: ATTEND Advanced Practice Midwife
DX: O34.219 Maternal care for unspecified type scar from previous cesarean delivery (principal)

== ENCOUNTER 2020-05-31 08:11 | Inpatient (IN) | payer BC ==
[~2020-05-31] VITALS: Ht 157.5 cm; Wt 113.9 kg
[2020-05-31] VITALS (8 sets, daily range): BP systolic 104–134; BP diastolic 57–68
[~2020-05-31 08:11] MED LIST changes: -IBUP80TA PO
[2020-05-31] MEDS ORDERED: LR 1,000 ML IV SCH ×2 (09:02→11:45)
[2020-05-31] MEDS ORDERED: LACTATED RINGER'S 1000 ML IV STA (09:02)
[2020-05-31] MEDS ORDERED: BICITRA 30ML SOLN UDC PO ONE (09:15)
[2020-05-31] MEDS ORDERED: ceFAZolin SOD 2 GM in IV 1 EA IV ONE (09:15)
[2020-05-31 09:35] LABS: HEMATOCRIT 36.1 % (36.0-47.0); HEMOGLOBIN 11.6 g/dl (12.0-15.5); MEAN CORPUSCULAR HEMOGLOBIN 28.6 pg (27.0-33.0); MEAN CORPUSCULAR HGB CONC 32.1 g/dl (32.0-36.5); MEAN CORPUSCULAR VOLUME 88.9 fl (80.0-96.0); PLATELET COUNT, AUTOMATED 182 10^3/uL (150-450); RED BLOOD COUNT 4.06 10^6/uL (4.00-5.40); WHITE BLOOD COUNT 10.2 10^3/uL (4.0-10.0)
[2020-05-31] MEDS ORDERED: MORPHINE PRES-FREE INJ 10 MG/10 ML VIAL (J2274) As Ordered ONE (10:09)
[2020-05-31] MEDS ORDERED: OXYTOCIN 30 UNITS IN 0.9% NaCl 500ML IV BAG (J2590) As Ordered ONE ×2 (10:10→11:59)
[2020-05-31] MEDS ORDERED: KETOROLAC 60MG 2ML VIAL As Ordered ONE (10:10)
[2020-05-31] MEDS ORDERED: dexameTHASONE 4 MG/ML 1ML VIAL (J1100 PER 1MG) As Ordered ONE (10:10)
[2020-05-31] MEDS ORDERED: OXYTOCIN INJ 10 UNITS/ML VIAL (J2590) As Ordered ONE (10:10)
[2020-05-31] MEDS ORDERED: PHENYLephrine HCL 500 MCG/5 ML (100MCG/ML) SYRINGE (J2370) As Ordered ONE (10:10)
[2020-05-31] MEDS ORDERED: ePHEDrine SULFATE 25 MG/5 ML(5MG/ML) SYRINGE As Ordered ONE (10:10)
[2020-05-31] MEDS ORDERED: ONDANSETRON 4MG/2ML VIAL As Ordered ONE (10:10)
[2020-05-31] MEDS ORDERED: NALBUPHINE HCL 10 MG/ML AMP (J2300) IV PRN (10:37)
[2020-05-31] MEDS ORDERED: ONDANSETRON 4MG/2ML VIAL IV PRN ×3 (10:37→11:45)
[2020-05-31] MEDS ORDERED: NALOXONE INJ 0.4MG/1ML VIAL (J2310 PER 1MG) IV PRN ×2 (10:37)
[2020-05-31] MEDS ORDERED: diphenhydrAMINE 50MG/ML VIAL (J1200) IV PRN (10:37)
[2020-05-31] MEDS ORDERED: METOCLOPRAMIDE INJ 10MG/2ML VIAL (J2765 PER 1) IV PRN (10:37)
[2020-05-31] MEDS ORDERED: OXYTOCIN DRIP 30 UNITS in IV 1 EA IV SCH (11:32)
[2020-05-31] MEDS: LR 1,000 ML IV SCH ×3 (11:32→23:35)
[2020-05-31] MEDS ORDERED: DOCUSATE SODIUM 100 MG CAP PO PRN (11:45)
[2020-05-31] MEDS ORDERED: PERCOCET 5MG/325MG TAB PO PRN (11:45)
[2020-05-31] MEDS ORDERED: fentaNYL 100 MCG/2 ML INJECTION (J3010) IV PRN (11:45)
[2020-05-31] MEDS ORDERED: MEASLES,MUMPS,RUBELLA VACCINE INJ (MMR-II) (90707) SC SCH (11:45)
[2020-05-31] MEDS ORDERED: RHOGAM 300 MCG (1500 IU) INJ (J2790) IM SCH (11:45)
[2020-05-31] MEDS: PRENATAL VITAMINS CHEWABLE TABLET PO SCH (17:31)
[2020-05-31] MEDS: KETOROLAC 30 MG/ML 1ML VIAL IV SCH ×2 (17:32→23:35)
--- NOTE | 2020-05-31 20:52 | HPE ---
DATE OF ADMISSION: 05/31/2020 She is a 34-year-old 2, para 1 female at 37 and 4/7 weeks gestation by last menstrual period (LMP) consistent with a 12-week ultrasound, presents with spontaneous loss of fluid per vagina at 7:00 a.m. on the morning of admission. She continues to leak fluid continuously. Her contractions became more frequent and intense. No vaginal bleeding. OBSTETRICAL HISTORY: 1. October 2017: section for 7 pound 8 ounce male . MEDICAL HISTORY: 1. Asthma. 2. Skin cancer February 2018. 3. Herniated disc in her lumbar spine. SURGICAL HISTORY: 1. Oral surgery. 2. section. ALLERGIES: CODEINE. SOCIAL HISTORY: The patient lives in [place]. She denies cigarettes, alcohol, or drug use. FAMILY HISTORY: Noncontributory. PHYSICAL EXAMINATION: Blood pressure is 104/57, pulse 75, afebrile, appears uncomfortable. Head and neck exam: Normal. Lungs: Clear. Heart: Regular. Abdomen: Nontender, gravid. heart tones: Category 1. Cervix: 3 cm, 100%, -2, posterior, soft, vertex. Extremities: Nontender. Contractions: Every 2-3 minutes. She is also grossly ruptured of clear fluid. ASSESSMENT: 34-year-old 2, para 1 at 37 and 4/7 weeks gestation, presents in active labor, spontaneous rupture of membranes. She has a history of prior section, desires repeat. PLAN: The patient is admitted on 05/31/2020. Plan to proceed with .
[2020-06-01 02:00] VITALS: BP 108/55
[2020-06-01] MEDS: KETOROLAC 30 MG/ML 1ML VIAL IV SCH (05:31)
[2020-06-01 05:38] VITALS: BP 122/60
[2020-06-01] MEDS ORDERED: OXYC1TAB23 PO (07:07)
[2020-06-01] MEDS ORDERED: IBUP80TA PO (07:25)
[2020-06-01] MEDS: PRENATAL VITAMINS CHEWABLE TABLET PO SCH (08:02)
[2020-06-01] MEDS: PERCOCET 5MG/325MG TAB PO PRN ×3 (08:03→21:45)
[2020-06-01 09:04] LABS: HEMATOCRIT 29.4 % (36.0-47.0); MEAN CORPUSCULAR HEMOGLOBIN 28.7 pg (27.0-33.0); MEAN CORPUSCULAR VOLUME 89.9 fl (80.0-96.0); PLATELET COUNT, AUTOMATED 146 10^3/uL (150-450); RED BLOOD COUNT 3.27 10^6/uL (4.00-5.40); WHITE BLOOD COUNT 10.6 10^3/uL (4.0-10.0)
[2020-06-01 09:05] LABS: HEMOGLOBIN 9.4 g/dl (12.0-15.5)
[2020-06-01 10:00] VITALS: BP 125/60
[2020-06-01] MEDS: IBUPROFEN 800 MG TAB PO SCH ×2 (13:25→21:46)
[2020-06-01 14:00] VITALS: BP 119/56
[2020-06-01 18:00] VITALS: BP 117/58
[2020-06-01 22:00] VITALS: BP 113/58
[2020-06-02] MEDS ORDERED: ACETAMINOPHEN 500 MG TAB PO ONE (00:45)
[2020-06-02 02:00] VITALS: BP 132/61
[2020-06-02] MEDS ORDERED: PERCOCET 5MG/325MG TAB PO ONE (02:00)
[2020-06-02] MEDS: IBUPROFEN 800 MG TAB PO SCH ×2 (03:51→09:53)
[2020-06-02] MEDS: PERCOCET 5MG/325MG TAB PO PRN ×2 (05:43→12:44)
[2020-06-02 06:00] VITALS: BP 110/63
--- NOTE | 2020-06-02 08:38 | DS.PDOC ---
Discharge Summary General Date of Admission May 31, 2020 at 08:58 Date of Discharge June 02, 2020 Discharge Summary PROCEDURES PERFORMED DURING STAY: Repeat section. ADMITTING DIAGNOSES: 1. Spontaneous rupture of membranes @ 37weeks, 4d. 2. Prior section 3. Desires repeat DISCHARGE DIAGNOSES: 1. Repeat section. COMPLICATIONS/CHIEF COMPLAINT: LABOR. HISTORY OF PRESENT ILLNESS: Ms Irving was admitted by Dr Holm 05/31/2020 with reports of large gush of fluid. She was found to be grossly ruptured and prepared for repeat section. HOSPITAL COURSE: Ambulating. Tolerating regular diet. Voiding, passing flatus. Pain management is now under control with abdominal binder and change to baseline ibuprofen order to Q 6 hours. DISCHARGE MEDICATIONS: Please see below. ALLERGIES: Please see below. PHYSICAL EXAMINATION ON DISCHARGE: VITAL SIGNS: Please see below. GENERAL: No distress HEENT: WNL NECK: Supple CARDIOVASCULAR EXAMINATION: HRR, normotensive RESPIRATORY EXAMINATION: Clear and unlabored ABDOMINAL EXAMINATION: Fundus firm. Optifoam dressing intact EXTREMITIES: Equal strength and motion SKIN: Intact NEUROLOGICAL EXAMINATION: Grossly intact PSYCHIATRIC EXAMINATION: Appropriate LABORATORY DATA: Please see below. PROGNOSIS: Good ACTIVITY: As tolerated. DIET: As tolerated DISCHARGE PLAN: Home today DISPOSITION: Home with family. DISCHARGE INSTRUCTIONS: 1. Routine care and precautions. Pelvic rest. Continue oral medications as directed. Call with fever, nausea, vomiting, chills, foul lochia or wound exudate. DISCHARGE CONDITION: Stable. TIME SPENT ON DISCHARGE: Greater than 10 minutes. Vital Signs/I&Os Vital Signs Date Time Temp Pulse Resp B/P (MAP) Pulse Ox O2 Delivery O2 Flow Rate FiO2 06/02/20 06:30 18 06/02/20 06:00 97.3 61 110/63 (79) 06/01/20 22:00 98 Room Air I&O- Last 24 Hours up to 6 AM 06/02/20 06:00 Output Total 600 ml Balance -600 ml Laboratory Data Labs 24H Laboratory Tests 2 06/01/20 08:40: Nucleated Red Blood Cells % (auto) 0.0 CBC/BMP Laboratory Tests 06/01/20 08:40 Discharge Medications Scheduled Ibuprofen (Ibuprofen) 800 Mg Tablet, 800 MG PO Q8H Pnv No.95/Ferrous Fum/Folic AC ( Vitamin Tablet) 1 Each Tablet, 1 TAB PO DAILY, (Reported) Scheduled PRN Oxycodone HCl/Acetaminophen (Oxycodone-Acetaminophen 5-325) 1 Each Tablet, 1 TAB PO TIDP PRN for pain Allergies Coded Allergies: codeine (Verified Allergy, Intermediate, SWELLING, 05/29/20) Dianne Weston CNM Jun 02, 2020 08:38
[2020-06-02] MEDS: PRENATAL VITAMINS CHEWABLE TABLET PO SCH (09:52)
[2020-06-02 10:00] VITALS: BP 123/76
--- NOTE | 2020-06-07 17:12 | RO ---
DATE OF PROCEDURE: 05/31/2020 PREOPERATIVE DIAGNOSIS: 37-4/7 weeks gestation, labor, with ruptured membranes, prior section. POSTOPERATIVE DIAGNOSIS: 37-4/7 weeks gestation, labor, with ruptured membranes, prior section. PROCEDURE: Repeat low transverse section. SURGEON: Eris Holm MD GATE PERSON: Kennedy Bond MD ANESTHESIA: Spinal. ESTIMATED BLOOD LOSS: 700 mL. URINE OUTPUT: 125. FINDINGS: 3140 gram (6 pound 15 ounce) female infant. score 9 and 9. Normal uterus, fallopian tubes, and ovaries. DESCRIPTION OF PROCEDURE: Patient was taken to the operating room where spinal anesthesia was induced. She was prepped and draped in sterile fashion in the supine position. A Umana catheter was placed. A Pfannenstiel skin incision was made with the scalpel and carried through to the fascia. The fascia was nicked and extended. The fascia was dissected off the rectus muscles. The peritoneal cavity was entered. A bladder flap was created. A Mobius retractor was placed. A curvilinear incision was made in the lower uterine segment until clear fluid was noted. This was extended manually. The infant was delivered in the vertex position without difficulty. The cord was doubly clamped and cut. The was handed off to the awaiting nurses. The placenta was expressed. The uterus was exteriorized and cleared of clots and debris. The uterine incision was closed with #0 Vicryl in a running locked fashion. A second imbricating layer of #0 Vicryl was placed. Mobius retractor was removed. The peritoneum was closed with #2-0 Vicryl and the fascia was closed with #0 Vicryl in a running fashion. Deep layer was irrigated and closed with #23-0 chromic. Skin was closed with #4-0 Monocryl subcuticular sutures. Sponge, instrument and needle counts were correct.
== END 2020-06-02 12:50 | disposition home or self-care (01) | DRG 540 ==
LOC: M LDO 08:11 → M LDI 08:58 → M OBS 12:48
PROVIDERS: ADMIT Specialist; ATTEND Specialist
PROC: 10D00Z1 Extraction of Products of Conception, Low, Open Approach (ICD-10-PCS; principal; 2020-05-31 10:02)
DX: O34.211 Maternal care for low transverse scar from previous cesarean delivery (principal); O09.523 Supervision of elderly multigravida, third trimester; Z37.0 Single live birth; Z3A.37 37 weeks gestation of pregnancy; Z88.5 Allergy status to narcotic agent

== ENCOUNTER → 2021-06-01 | Outpatient (CLI) | payer BC ==
[~2021-06-01] MED LIST changes: +IBUP80TA PO; +TRI-TAB
== END ==
LOC: M LABSMTC 09:06
PROVIDERS: ATTEND Anesthesiology
DX: Z01.818 Encounter for other preprocedural examination (principal); Z11.52 Encounter for screening for COVID-19

== ENCOUNTER 2021-06-06 06:25 | Day surgery (SDC) | payer BC ==
[~2021-06-06] VITALS: Ht 157.5 cm; Wt 98.0 kg
[~2021-06-06 06:25] MED LIST changes: +LR 1,000 ML IV ONE
[2021-06-06 06:57] LABS: HEMATOCRIT 42.3 % (36.0-47.0); HEMOGLOBIN 13.6 g/dl (12.0-15.5); MEAN CORPUSCULAR HEMOGLOBIN 29.6 pg (27.0-33.0); MEAN CORPUSCULAR HGB CONC 32.2 g/dl (32.0-36.5); MEAN CORPUSCULAR VOLUME 92.2 fl (80.0-96.0); PLATELET COUNT, AUTOMATED 258 10^3/uL (150-450); RED BLOOD COUNT 4.59 10^6/uL (4.00-5.40); WHITE BLOOD COUNT 7.7 10^3/uL (4.0-10.0)
[2021-06-06] MEDS ORDERED: propofoL 200 MG/20 ML VIAL As Ordered ONE (07:11)
[2021-06-06] MEDS ORDERED: ROCURONIUM BROMIDE 50 MG/5 ML VIAL As Ordered ONE (07:11)
[2021-06-06] MEDS ORDERED: LIDOCAINE 2% 100MG/5ML SDV (FOR ANES.) As Ordered ONE (07:11)
[2021-06-06] MEDS ORDERED: fentaNYL 100 MCG/2 ML INJECTION (J3010) As Ordered ONE ×2 (07:11→07:55)
[2021-06-06] MEDS ORDERED: ONDANSETRON 4MG/2ML VIAL As Ordered ONE (07:12)
[2021-06-06] MEDS ORDERED: dexameTHASONE 4 MG/ML 1ML VIAL (J1100 PER 1MG) As Ordered ONE (07:12)
[2021-06-06] MEDS ORDERED: MIDAZOLAM INJ 2MG/2ML VIAL (J2250 PER 1MG) As Ordered ONE (07:12)
[2021-06-06] MEDS ORDERED: BUPIVACAINE HCL 0.25% 30ML VIAL As Ordered ONE (07:12)
[2021-06-06] MEDS ORDERED: SCOPOLAMINE 1MG TRANSDERMAL PATCH As Ordered ONE (07:26)
[2021-06-06] MEDS ORDERED: SCOPOLAMINE 1MG TRANSDERMAL PATCH TOP ONE (08:00)
[2021-06-06] MEDS ORDERED: KETOROLAC 60MG 2ML VIAL As Ordered ONE (08:01)
[2021-06-06] MEDS ORDERED: SUGAMMADEX SODIUM 500 MG/5 ML VIAL (BRIDION) As Ordered ONE (08:01)
[2021-06-06] MEDS ORDERED: METOCLOPRAMIDE INJ 10MG/2ML VIAL (J2765 PER 1) As Ordered ONE (08:02)
[2021-06-06] MEDS ORDERED: ACETAMINOPHEN 1000MG 100ML IV BTL (OFIRMEV) (J0131 PER 10MG) As Ordered ONE (08:02)
[2021-06-06] MEDS ORDERED: IBUP80TA PO (08:44)
[2021-06-06] MEDS ORDERED: PERC5TAB12 PO (08:46)
[2021-06-06] MEDS ORDERED: LR 1,000 ML IV SCH (08:50)
[2021-06-06] MEDS ORDERED: METOCLOPRAMIDE INJ 10MG/2ML VIAL (J2765 PER 1) IV PRN (08:50)
[2021-06-06] MEDS ORDERED: fentaNYL 100 MCG/2 ML INJECTION (J3010) IV PRN (08:50)
[2021-06-06] MEDS ORDERED: ONDANSETRON 4MG/2ML VIAL IV PRN (08:50)
[2021-06-06] MEDS ORDERED: DESFLURANE 240 ML INHALANT As Ordered ONE (08:52)
--- NOTE | 2021-06-06 09:27 | ROOPDOC ---
[facility] Report Of Operation Report of Operation DATE OF PROCEDURE: 06/06/21 PREPROCEDURE DIAGNOSES: Satisfied parity with undesired fertility. POSTPROCEDURE DIAGNOSES: Satisfied parity with undesired fertility. PROCEDURE: Diagnostic operative laparoscopy with bilateral salpingectomy for purpose of tubal ligation. SURGEON: Marie Edwards MD CONCRETE SCULPTOR: None ANESTHESIA: General endotracheal anesthesia. INTRAVENOUS FLUIDS: 800 mL of lactated Ringer's solution. ESTIMATED BLOOD LOSS: Approximately 5 mL. URINE OUTPUT: 100 mL. PREOPERATIVE ANTIBIOTICS: None. SPECIMENS: Bilateral fallopian tubes. COMPLICATIONS: None OPERATIVE FINDINGS: Patient with normal appearing uterus and bilateral adnexa. DESCRIPTION OF PROCEDURE: After informed consent was obtained and written consent was reviewed, the patient was brought to the operating room where she was placed under general endotracheal anesthesia. She was then placed in the lithotomy position. She was prepped and draped in a normal sterile fashion. A time-out in the operating room was then performed identifying the patient, procedure to be performed, as well as drug allergies. [place] speculum was then placed revealing the cervix. The anterior lip of the cervix was grasped with a single-tooth tenaculum. A Hulka tenaculum was then advanced through the cervical os for a means to manipulate the uterus. Single-tooth tenaculum as well as the speculum was removed. Bladder was drained. Gloves were changed. Attention was turned to the patient's abdomen where 0.25% Marcaine was infused in umbilical region. This area was incised and a 5 mm trocar and sleeve was advanced through this incision. The laparoscope was then replaced revealing intraabdominal placement. Pneumoperitoneum was then obtained with CO2 gas. The abdomen was then surveyed with the above-noted findings. Two additional port sites were placed. One port site was placed 2 cm above the pubis symphysis in the midline. This area was infused with 0.25% Marcaine. An incision was made in this area and 8 mm trocar and sleeve was advanced through this incision under direct visualization. A second accessory port was placed left side of the patient's abdomen. This area was infused with 0.25% Marcaine. A 5 mm trocar and sleeve was advanced through this incision under direct visualization. Next, the right fallopian tube was then placed on traction. Using Harmonic Jered scalpel device, the mesosalpinx was dissected underneath the fallopian tube and was transected at the level of the uterus. Specimen was then brought out the port site. In a similar fashion, left fallopian tube was dissected along the left mesosalpinx underneath the fallopian tube and transected at the level of the uterus. The specimen was removed. Surgical sites were inspected and noted to be hemostatic. Pneumoperitoneum was then released and port sites were then closed with #4-0 Monocryl and was dressed with Dermabond. Umana catheter as well as a Hulka tenaculum was removed. The patient was then taken out of the lithotomy position, was awakened from general anesthesia and taken to recovery in stable condition. Counts were correct. MARIE EDWARDS MD. Jun 06, 2021 09:27
[2021-06-06 10:45] VITALS: BP 133/74
== END 2021-06-06 11:17 | disposition home or self-care (01) ==
LOC: M SDC 06:25
PROVIDERS: ATTEND Obstetrics & Gynecology
DX: Z30.2 Encounter for sterilization (principal); J45.909 Unspecified asthma, uncomplicated; Z79.3 Long term (current) use of hormonal contraceptives; Z88.5 Allergy status to narcotic agent
CPT/HCPCS: 36415; 58661; 81025; 85027; 86850; 86900; 86901; 88302; J0131; J1100; J1885; J2250; J2405; J2765; J3010

== ENCOUNTER → 2023-09-04 | Outpatient (REF) | payer BC ==
[~2023-09-04] MED LIST changes: -LR 1,000 ML IV ONE; +PERC5TAB12 PO
== END ==
LOC: M LAB REF 16:22
PROVIDERS: ATTEND Physician Assistant Medical
DX: N89.8 Other specified noninflammatory disorders of vagina (principal)

== ENCOUNTER → 2023-10-05 | Outpatient (REF) | payer BC | LOC: M LAB REF 17:31 | PROVIDERS: ATTEND Family Medicine | DX: N76.0 Acute vaginitis (principal) ==

== ENCOUNTER → 2024-03-24 | Outpatient (CLI) | payer BC | LOC: M RAD 14:03 | PROVIDERS: ATTEND Family Medicine | DX: Z86.39 Personal history of other endocrine, nutritional and metabolic disease (principal); Z80.8 Family history of malignant neoplasm of other organs or systems ==

== ENCOUNTER → 2024-09-30 | Outpatient (CLI) | payer BC | LOC: M WHC 14:32 | PROVIDERS: ATTEND Family Medicine | DX: Z12.31 Encounter for screening mammogram for malignant neoplasm of breast (principal); R92.313 Mammographic fatty tissue density, bilateral breasts ==

== ENCOUNTER → 2025-11-07 | Outpatient (CLI) | payer BC | LOC: M WHC 14:32 | PROVIDERS: ATTEND Family Medicine | DX: Z12.31 Encounter for screening mammogram for malignant neoplasm of breast (principal) ==